=== PATIENT | female | born 2005 | race Caucasian/White ===

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

== ENCOUNTER 2023-02-02 00:25 | Emergency (ER) | payer OTHER, SELFPAY ==
[2023-02-02 00:26] VITALS: BP 115/73; PULSE 65; RESP 18; TEMP 36.1; O2SAT 99
[2023-02-02 01:34] LABS: Absolute Lymphocyte Count 1.55 X10^3/uL (0.83-4.51); Basophil# 0.05 X10^3/uL; Eosinophil# 0.07 X10^3/uL; Eosinophils% 1.4 % (0-5); Hemoglobin 13.7 g/dL (12.0-15.0); Lymphocyte # 1.55 X10^3/ul (0.83-4.51); Lymphocyte % 31.1 % (19-41); Mean Corp Hgb Conc 35.1 g/dL (32-36); Mean Corpuscular Hgb 31.9 pg (27.0-32.0); Mean Corpuscular Volume 90.7 fL (81-99); Mean Platelet Vol. 9.2 fl (6.2-12.0); Monocyte# 0.27 X10^3/uL; Monocyte% 5.4 % (0-10); NRBC Flagged by Analyzer 0 % (0-5); Neutrophil # 3.03 X10^3/uL (2.7-7.7); Neutrophil % 60.9 % (47-70); Platelet Count 209 K/mm3 (150-450); RBC Distribution Width CV 11.4 % (11.6-14.6); RBC Distribution Width SD 37.7 fl (35.1-43.9)
[2023-02-02 01:42] LABS: Prothrombin Time (Protime)PT. 13.2 SECONDS (11.7-14.9)
[2023-02-02 01:43] LABS: Partial Thromboplast Time 29.6 Seconds (24.1-36.2)
[2023-02-02 01:47] LABS: Anion Gap 5 (5-15); BUN 11 mg/dL (7-18); BUN/Creat Ratio 15.1 RATIO (10-20); Calcium,Total 9.4 mg/dL (8.5-10.1); Chloride 107 mmol/L (98-107); Creatinine, Serum 0.73 mg/dL (0.55-1.02); EST Glomerular Filtration Rate 109 mL/min (>60); Est Glom Filt Rate - Afr Amer 132 mL/min (>60); Glucose 116 mg/dL (74-106); Potassium 3.9 mmol/L (3.5-5.1); Sodium Level 140 mmol/L (136-145)
--- NOTE | 2023-02-02 03:11 | EDS_ITS ---
HPI History of Present Illness Chief Complaint: GI Bleed Informant: patient and parent Narrative Narrative: Patient is a 17-year-old female with past medical history of ovarian cyst requiring surgical fixation. She denies any family history of ulcerative colitis or Crohn's disease or IBS. She states she has been having intermittent bouts of blood in her stool for quite some time and is fine with her family doctor because of this. She denies any history of bleeding disorder or blood thinner use. She states that today she had 3 bowel movements that were combination of bright red blood in stool. As this is atypical for her she was advised to come to the hospital for evaluation. Patient denies any recent constipation or straining. She denies any abdominal pain associated with this fevers or chills. She states that she only notices blood with bowel movement. [facility] Medical History (Updated 02/02/23 @ 03:[address] Jarred Cuevas, ) Left ovarian cyst Home Medications ondansetron 4 mg disintegrating tablet 4 mg PO Q8H PRN PRN Nausea #10 tabs 08/09/14 [Rx Last Taken Unknown] cetirizine 10 mg tablet mg PO DAILY 02/02/23 [History Last Taken Unknown] cyproheptadine 4 mg tablet 6 mg PO QHS 02/02/23 [History Last Taken Unknown] Allergy/AdvReac Type Severity Reaction Status Date / Time Penicillins Allergy Mild Other Verified 02/02/23 00:29 Social History Smoking Status: Never smoker [facility] ED Constitutional Constitutional ED: Denies chills or fever(s) Eyes Eyes: Denies change in vision ENT ENT ED: Denies sore throat Cardiovascular Cardiovascular: Denies chest pain, palpitations or racing heartbeat Respiratory/Chest Respiratory/Chest: Denies cough or dyspnea Gastrointestinal Gastrointestinal: Reports other Details: Bright red blood per rectum ; Denies abdominal pain, diarrhea, nausea or vomiting Genitourinary Genitourinary ED: Denies dysuria Musculoskeletal Musculoskeletal: Denies myalgias Integumentary Denies rash Neurologic Neurologic: Denies headache(s) or weakness Hematologic/Lymphatic Hematologic/Lymphatic: Denies easy bleeding or easy bruising EXAM Physical Exam Const Vital Signs: 02/02/23 00:26 Temperature 96.9 F L Temperature Source Oral Pulse Rate 65 Respiratory Rate 18 Blood Pressure 115/73 Blood Pressure Mean 87 Pulse Ox 99 Oxygen Delivery Method Room Air Positive well nourished and well developed General Appearance ED: well developed; Negative for pallor HEENT Reports moist mucous membranes Eyes PERRL and EOMs intact bilaterally General Eye ED: Negative for pale conjunctiva Neck supple Resp normal respiratory effort and clear to auscultation bilaterally Cardio regular rate and regular rhythm Rate: other Other Details: Radial pulses are plus 2 out of 4 bilaterally are equal and symmetric GI normal to inspection, nondistended, normoactive bowel sounds, non-tender, non- distended and no masses GI Narrative: No voluntary guarding or rigidity no pulsatile mass or fluid wave Auscultation: normoactive bowel sounds Palpation: soft Narrative: There are no obvious thrombosed or bleeding external hemorrhoids present. No obvious anal fissure noted. Rectal tone is normal. No obvious engorged internal hemorrhoids palpated. Stool is mucousy brown in color with flecks of bright red blood. Extremity normal to inspection Neuro oriented x3, CN's II-XII intact bilaterally and no sensory deficits noted Sensorium / Orientation: alert Motor Exam: strength 5/5 throughout Psych mental status grossly normal Skin no rashes or lesions noted General Skin Exam: Negative for jaundice or pallor MDM MDM MDM Narrative Medical decision making narrative: Patient presented to the ER with stable vitals and a soft nonsurgical abdomen. She reported intermittent bouts of bright red blood with bowel movement today. Secondary to this concern is for external hemorrhoid versus internal hemorrhoid versus anal fissure versus colitis or potential diverticular bleeding. As the stool was mucousy brown with flecks of blood this is most concerning for intermittent hemorrhoidal bleeding. Basic blood work was obtained which revealed no signs of acute blood loss anemia or derangement to her platelets or bleeding time. BUN is also normal going against an upper GI bleed. Patient had no further bouts of bleeding while in the ER. Therefore this time she is hemodynamically stable with no need for a blood transfusion and no indication of an upper GI bleed. There also no physical exam findings or laboratory studies concerning for acute infectious process as a cause of the hematochezia. Therefore at this time patient will be discharged and follow-up on an outpatient basis. It was advised that she discuss potential GI referral and colonoscopy to further assess the cause of her symptoms but at this time as she is not requiring a blood transfusion or having on stable vitals she safe for discharge History & Record Review Discussion w/independent historian: Patient and Family Lab Data Attestation: I reviewed the patient's lab results. Labs: Laboratory Results - last 24 hr 02/02/23 01:15 WBC 5.0 RBC 4.30 Hgb 13.7 Hct 39.0 MCV 90.7 MCH 31.9 MCHC 35.1 RDW Std Deviation 37.7 RDW Coeff of Serena 11.4 L Plt Count 209 MPV 9.2 Immature Gran % (Auto) 0.200 Neut % (Auto) 60.9 Lymph % (Auto) 31.1 [place] % (Auto) 5.4 Eos % (Auto) 1.4 Baso % (Auto) 1.0 Absolute Neuts (auto) 3.0 Absolute Lymphs (auto) 1.55 Nucleated RBC % 0 PT 13.2 INR 1.0 APTT 29.6 Sodium 140 Potassium 3.9 Chloride 107 Carbon Dioxide 28.0 Anion Gap 5 BUN 11 Creatinine 0.73 Est GFR (MDRD) Af Amer 132 Est GFR (MDRD) Non-Af 109 BUN/Creatinine Ratio 15.1 Glucose 116 H Calcium 9.4 Discharge Plan Triage Chief Complaint: GI Bleed ED Provider: Jarred Cuevas Dx/Rx/DC Orders Clinical Impression: Lower gastrointestinal bleeding Instructions: ED Lower GI Bleeding (Stable) Prescriptions: No Action ondansetron 4 MG tablet 4 mg PO Q8H PRN PRN (Reason: Nausea) Qty: 10 0RF cetirizine 10 mg tablet PO DAILY Patient Comments: take 1 tablet by mouth daily if needed for allergies cyproheptadine 4 mg tablet 6 mg PO QHS Patient Comments: take 2 tablets by mouth at bedtime Primary Care Provider: Jeaneth Borja Referrals: Jeaneth Borja MD [Primary Care Provider] - Activity Restrictions/Additional Instructions: Please talk to your family doctor about a referral to a strip machine operator as you may need a colonoscopy to further diagnose the cause of your bleeding. If you develop severe abdominal pain associated with the bleeding you become dizzy or pass out with changes in position/standing or you develop persistent bleeding just at rest and not only with bowel movements and please return for repeat evaluation. Disposition Disposition: Home, Self Care Discharge Date/Time: 02/02/23 03:28
== END 2023-02-02 03:28 | disposition home or self-care (01) ==
PROVIDERS: Emergency Provider Emergency Medicine; PCP Pediatrics; Visit Provider Emergency Medicine
DX: K92.2 Gastrointestinal hemorrhage, unspecified (principal)
CPT/HCPCS: 80048; 82274; 85025; 85610; 85730; 99282; A4216